=== PATIENT | male | born 1990 | race Two or more races ===

== ENCOUNTER 2023-12-09 12:48 | Outpatient (AMB) | payer OTHER, BC, SELFPAY ==
--- NOTE | 2023-12-09 13:17 | MHC.OFFWIV ---
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 He states he was reaching down lifting a crate of bread and had a sudden onset of acute back pain. He denies any lower extremity weakness or paresthesias denies incontinence but does have radiating pain down his posterior thigh through his sciatic notch. PFSH Social History Patient Tobacco Use Status: Never used Tobacco Review of Systems Const All systems reviewed & are unremarkable except as noted in HPI and below Physical Exam Vital Signs: Last Vital Signs Temp 98.7 F 12/09/23 13:18 Pulse 83 12/09/23 13:18 BP 110/88 12/09/23 13:18 Pulse Ox 97 12/09/23 13:18 Oxygen Delivery Method Room Air 12/09/23 13:18 BMI result Body Mass Index 43.4 Back/Spine/Pelvis Thoracic/Lumbar Spine: straight leg raise negative bilaterally and paraspinal muscle tenderness on the right in the lower lumbar Assessment & Plan Assessment & Plan (1) Low back pain potentially associated with radiculopathy: Code(s): M54.50 - Low back pain, unspecified Plan: The patient will take a Medrol Dosepak to see if we can decrease the symptoms on the radiculopathy. He was instructed to do some gentle and ambulation avoid prolonged sitting and no lifting. Follow up with his PCP the symptoms do not resolve. Medications: New prednisone prednisone 5 mg: take 8 tablets (40 mg) on Day 1; 7 tablets (35 mg) on Day 2; then decrease by 1 tablet every day until finished PO 21 ea 0RF Coding Level of Care Code Est Pt Level 3 (85121) Diagnoses Low back pain potentially associated with radiculopathy M54.50
[2023-12-09 13:18] VITALS: BP 110/88; PULSE 83; TEMP 37.1; O2SAT 97; BMI 43.4
== END 2023-12-09 14:03 | disposition home or self-care (01) ==
PROVIDERS: Visit Provider Physician Assistant Medical
DX: M54.50 Low back pain, unspecified (principal)
CPT/HCPCS: 99213

== ENCOUNTER 2023-12-14 11:53 | Outpatient (AMB) | payer OTHER, BC, SELFPAY ==
[2023-12-14 12:54] VITALS: BP 110/80; PULSE 106; TEMP 36.3; O2SAT 96; BMI 43.1
--- NOTE | 2023-12-14 12:54 | MHC.OFFWIV ---
Intake Vital Signs 12/14/23 12:54 Height 6 ft 1 in Weight 327 lb BMI 43.1 BP 110/80 Blood Pressure Location Lt brachial Position Sitting Pulse 106 H Pulse Source Pulse Oximeter Temp 97.4 F Temp Source Temporal Artery Scan Pulse Oximetry (%) 96 Oxygen Delivery Method Room Air Intake Visit Reasons: EP WC Back pain Intake Note: pt is here today for back pain started 1 week ago Patient Tobacco Use Status: Never used Tobacco Allergies No Known Allergies Allergy (Verified 12/14/23 12:55) Do you need a note to return to daycare/school/sports/work: Yes HPI HPI Comments History of Present Illness Details This is a 33-year-old male with no stated past medical history who presents for re-evaluation after experiencing a work-related injury on December 07, 2023. Patient works as a Traffic Or System Dispatcher for [employer] and on 12.07.2023 was picking up a tray of bread and placing it on a trailer when he suddenly felt a sharp 10/10 pain in his right low back when putting down the tray of bread. Patient was unable to work thereafter. Patient states the trays of bread weigh anywhere from 10-20 lb each. Patient is reporting an injury to his low back. Patient was seen in the walk-in on December 08 and prescribed a tapering dose of prednisone which he has not yet completed. Patient states at this time he feels that he is able to put more weight on his right leg however continues to have right low back pain that radiates down his lateral right leg to his foot. Patient denies any numbness or tingling in his right lower extremity and denies any new injuries since being seen on December 08. Patient returns for a re-evaluation as previously instructed. [facility] Social History Patient Tobacco Use Status: Never used Tobacco Review of Systems Const All systems reviewed & are unremarkable except as noted in HPI and below Reports no additional complaints Musc Reports abnormal gait, Reports back pain, Reports radiating pain into limb (RLE) and Denies tingling Skin/Breast Reports system reviewed and no additional complaints, except as documented Neuro Reports no additional complaints, Reports abnormal gait and Denies tingling Psych Reports no additional complaints Physical Exam Vital Signs: Last Vital Signs Temp 97.4 F 12/14/23 12:54 Pulse 106 H 12/14/23 12:54 BP 110/80 12/14/23 12:54 Pulse Ox 96 12/14/23 12:54 Oxygen Delivery Method Room Air 12/14/23 12:54 BMI result Body Mass Index 43.1 Pulse rechecked 72 on physical examination. Const General: cooperative, comfortable and other (seated on left buttock with right leg extended) Nutritional Appearance: obese Orientation/consciousness: patient oriented x3 Limitations: no limitations Cardio Rate: regular rate Rhythm: regular rhythm Back/Spine/Pelvis Thoracic/Lumbar Spine: thoracic and lumbar spine normal to inspection, pain with thoraco-lumbar ROM (right), paraspinal muscle tenderness (right lumbar paraspinous tenderness with ++right sciatic notch tenderness), No thoracic spinal tenderness and No lumbar spinal tenderness Pelvis: sciatic notch tenderness (right) Sacroiliac joints: on the right tender to palpation and on the left nontender Skin General skin exam: no rashes or lesions noted Neuro Other: sensation intact throughout RLE; passive ROM right knee, right hip intact General: patient oriented x3 Gait exam (Neuro): gait abnormal (favoring RLE; ambulating independently without assistance) Psych Appearance: grossly normal Mental Status: mental status grossly normal Insight: Good insight present (Psych) Judgement: Good judgement present (Psych) Assessment & Plan Assessment & Plan (1) Low back pain potentially associated with radiculopathy: Onset Date: 12/07/23 Comment: Patient reports clinical improvement, however will benefit from physical therapy intervention. Code(s): M54.50 - Low back pain, unspecified Plan: Patient will complete course of prednisone with the addition of Robaxin; patient is prescribed Naprosyn to take following the completion of his prednisone taper. Referral for physical therapy is placed. Patient will follow-up in the walk-in in 7-10 days. Orders: Orders PT Evaluation and Treatment Today M54.50 - Low back pain, unspecified Medications: New methocarbamol 750 mg PO Q8H 20 tabs 0RF naproxen (Naprosyn) 500 mg PO BID 20 tabs 0RF Coding Level of Care Code Est Pt Level 3 (55056) Diagnoses Low back pain potentially associated with radiculopathy M54.50 Time Spent (min) 25
== END 2023-12-14 13:36 | disposition home or self-care (01) ==
PROVIDERS: Visit Provider Physician Assistant
DX: M54.50 Low back pain, unspecified (principal)
CPT/HCPCS: 99213

== ENCOUNTER 2023-12-23 09:29 | Outpatient (AMB) | payer OTHER, BC, SELFPAY ==
[2023-12-23 10:11] VITALS: BP 130/92; PULSE 104; TEMP 36.8; O2SAT 96; BMI 43.3
--- NOTE | 2023-12-23 10:11 | MHC.OFFWIV ---
Intake Vital Signs 12/23/23 10:11 Height 6 ft 1 in Weight 328 lb 8 oz BMI 43.3 BP 130/92 H Blood Pressure Location Lt brachial Position Sitting Pulse 104 H Pulse Source Pulse Oximeter Temp 98.3 F Temp Source Oral Pulse Oximetry (%) 96 Oxygen Delivery Method Room Air Intake Visit Reasons: EP lower back pain Intake Note: pt is here today for lower back pain that started after he was picking up and putting something down at work on 12/07/23. Pt states he had a sharp pain go down his leg. Pt states he was seen here 12/09/23 and 12/14/23 and was told to come back here if it didn't get better. Patient Tobacco Use Status: Never used Tobacco Allergies No Known Allergies Allergy (Verified 12/23/23 10:21) HPI HPI Comments History of Present Illness Details Pt is a 33yo M who presents post work injury for check up Has been seen twice for lowwer back injury Was lifting and + pain in back at work R sided lower back with intermittent radiopathy + pain at baseline with intermittent radiation No tingling/weakness No abdominal pain, urine or bowel symptoms or incontinence Previously took prednisone and then muscle relaxants which helped States discomfort with ambulation is improving No other complaints PT appointment on Thursday [facility] Social History Patient Tobacco Use Status: Never used Tobacco Review of Systems Const Denies chills, Denies fatigue, Denies fever(s) and Denies weakness Card Denies chest pain Resp Denies cough GI Denies abdominal pain and Denies other (no bladder/bowel incontience) Musc Reports back pain Skin/Breast Denies rash Neuro Denies weakness Endo Denies fatigue Physical Exam Vital Signs: Last Vital Signs Temp 98.3 F 12/23/23 10:11 Pulse 104 H 12/23/23 10:11 BP 130/92 H 12/23/23 10:11 Pulse Ox 96 12/23/23 10:11 Oxygen Delivery Method Room Air 12/23/23 10:11 BMI result Body Mass Index 43.3 General: Non-toxic, NAD. Speaking full sentences. Skin: Warm dry throughout. No posterior back or flank ecchymosis or lesions Eye: EOMI Respiratory: Lungs CTA Cardiac: RRR. No calf tenderness or pedal edema MSK: Full ROM extremities. No midline spinal tenderness. + R paravertebral muscle tenderness to palpation. Negative SLR bilaterally. 5/5 flexion of great toe bilaterally Neurology: A/O. No aphasia or facial droop. Gait without abnormality Psych: Good mood and affect Assessment & Plan Assessment & Plan (1) Low back pain potentially associated with radiculopathy: Onset Date: 12/07/23 Comment: Patient reports clinical improvement, however will benefit from physical therapy intervention. Code(s): M54.50 - Low back pain, unspecified Plan: Patient seen and evaluated. No new symptoms but pain still present at baseline and worse with movement Discussed with pt that he has PT appointment on Thursday Switch to tylenol/motrin alternating during day and only Robaxin when needed such as before bed We reiterated no alcohol or driving under influence Work okay with follow up here for injury and he will return in one week to re-eval Discussed manual labor for work but boss has idea/plan for when he can return to work with restrictions. Patient gave verbal understanding and had no additional questions or concerns at time of discharge All questions answered Coding Level of Care Code Est Pt Level 3 (81732) Diagnoses Low back pain potentially associated with radiculopathy M54.50
== END 2023-12-23 11:07 | disposition home or self-care (01) ==
PROVIDERS: Visit Provider Physician Assistant
DX: M54.50 Low back pain, unspecified (principal)
CPT/HCPCS: 99213

== ENCOUNTER 2023-12-30 10:07 | Outpatient (AMB) | payer OTHER, BC, SELFPAY ==
[2023-12-30 10:18] VITALS: BP 112/90; PULSE 86; TEMP 36.7; O2SAT 97; BMI 43.0
--- NOTE | 2023-12-30 10:18 | AM.OFFWIN_ITS ---
Intake Vital Signs 3 12/30/23 10:18 Height 6 ft 1 in Weight 326 lb BMI 43.0 BP 112/90 H Blood Pressure Location Lt brachial Position Sitting Pulse 86 Pulse Source Pulse Oximeter Temp 98.0 F Temp Source Temporal Artery Scan Pulse Oximetry (%) 97 Oxygen Delivery Method Room Air Intake Visit Reasons: EP Back pain Intake Note: pt is here today for back pain started 12/06 Patient Tobacco Use Status: Never used Tobacco Allergies No Known Allergies Allergy (Verified 12/30/23 10:21) Medication List - Last Reconciled 12/30/23 by Carl Ballesteros MD methocarbamol 750 mg PO Q8H naproxen (Naprosyn) 500 mg PO BID Do you need a note to return to daycare/school/sports/work: Yes HPI EP Back pain 2 HPI0 Details Patient is a 33-year-old gentleman came in today to be re-evaluate for right-sided lumbar radiculitis Patient was evaluated a week ago in walk-in clinic was prescribed prednisone methocarbamol naproxen and physical therapy was ordered Patient is feeling little bit better, he still have 2 more sessions of physical therapy His pain started at work, 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 I have filled his methocarbamol and naproxen prescription He is to finish up his physical therapy Patient was given another 2 weeks off. He is still having pain radiating to right leg, there is no weakness in leg there is no paresthesia Pain is worse when he is sitting for prolonged periods of time and better when he stands up There is no bowel or bladder issue Patient should get re-evaluation by primary care after 2 weeks [facility] Social History Patient Tobacco Use Status: Never used Tobacco Review of Systems Const Denies chills and Denies fever(s) ENT Denies epistaxis and Denies nasal discharge Card Denies chest pain Resp Denies chest congestion, Denies cough and Denies hemoptysis GI Denies diarrhea and Denies nausea Skin/Breast Denies rash Neuro Reports no additional complaints Psych Reports no additional complaints Endo Reports no additional complaints Physical Exam Vital Signs: Last Vital Signs Temp 98.0 F 12/30/23 10:18 Pulse 86 12/30/23 10:18 BP 112/90 H 12/30/23 10:18 Pulse Ox 97 12/30/23 10:18 Oxygen Delivery Method Room Air 12/30/23 10:18 BMI result Body Mass Index 43.0 Const General: cooperative Orientation/consciousness: patient oriented x3 HEENT Head: Yes normocephalic Eyes General: appearance normal, both eyes and all related structures Neck Other: Supple Neck: Yes supple Resp Effort & Inspection: normal respiratory effort, no cough and no stridor Cardio Rhythm: regular rhythm Heart sounds: S1 normal heart sound present and S2 normal heart sound present Back/Spine/Pelvis Back/spine/pelvis image: 2 1. No pain with percussion, this is where the pain starts and radiate to right hip area, straight leg slightly positive right side Skin General skin exam: turgor normal Neuro Other: Motor sensory intact General: patient oriented x3, tone normal and moves all extremities Extrem Other: No lower extremity swelling. Right lower extremity: no edema Left lower extremity: no edema Psych Other: Normal effect, speech clear Assessment & Plan Assessment & Plan (1) Low back pain potentially associated with radiculopathy: Onset Date: 12/07/23 Code(s): M54.50 - Low back pain, unspecified Plan Patient is a 33-year-old gentleman came in today to be re-evaluate for right- sided lumbar radiculitis Patient was evaluated a week ago in walk-in clinic was prescribed prednisone methocarbamol naproxen and physical therapy was ordered Patient is feeling little bit better, he still have 2 more sessions of physical therapy His pain started at work, 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 I have filled his methocarbamol and naproxen prescription He is to finish up his physical therapy Patient was given another 2 weeks off. He is still having pain radiating to right leg, there is no weakness in leg there is no paresthesia Pain is worse when he is sitting for prolonged periods of time and better when he stands up There is no bowel or bladder issue Patient should get re-evaluation by primary care after 2 weeks Medications: Refilled 2 methocarbamol 750 mg PO Q8H 20 tabs 0RF naproxen (Naprosyn) 500 mg PO BID 20 tabs 0RF Coding Level of Care Code Est Pt Level 4 (01296) Diagnoses Low back pain potentially associated with radiculopathy M54.50
== END 2023-12-30 11:51 | disposition home or self-care (01) ==
PROVIDERS: Visit Provider Internal Medicine
DX: M54.50 Low back pain, unspecified (principal)
CPT/HCPCS: 99214

== ENCOUNTER 2024-01-13 08:11 | Outpatient (AMB) | payer OTHER, BC, SELFPAY ==
[2024-01-13 08:29] VITALS: BP 120/78; PULSE 92; TEMP 36.6; O2SAT 97; BMI 43.1
--- NOTE | 2024-01-13 08:29 | MHC.OFFWIV ---
Intake Vital Signs 01/13/24 08:29 Height 6 ft 1 in Weight 327 lb BMI 43.1 BP 120/78 Blood Pressure Location Lt brachial Position Sitting Pulse 92 Pulse Source Pulse Oximeter Temp 97.8 F Temp Source Temporal Artery Scan Pulse Oximetry (%) 97 Oxygen Delivery Method Room Air Intake Visit Reasons: EP lower back pain (lobby) Intake Note: pt is here today for lower back pain started 1 month Patient Tobacco Use Status: Never used Tobacco Allergies No Known Allergies Allergy (Verified 01/13/24 08:33) Medication List - Last Reconciled 01/13/24 by Carl Ballesteros MD methocarbamol 750 mg PO Q8H naproxen (Naprosyn) 500 mg PO BID Do you need a note to return to daycare/school/sports/work: Yes HPI EP lower back pain (lobby) HPI Details Patient is 33-year-old gentleman who is gradually recovering from lumbar radiculitis right side physical therapy Patient says that he is still have few sessions left and he would like to finish it before he go back to work He has talked to his boss and he they agree. He will be finishing up on February 01, he is taking muscle relaxer at night only On physical exam, he still have positive straight leg sign but it is improving Note provided to be off until February 01 PFSH Social History Patient Tobacco Use Status: Never used Tobacco Review of Systems Const All systems reviewed & are unremarkable except as noted in HPI and below Physical Exam Vital Signs: Last Vital Signs Temp 97.8 F 01/13/24 08:29 Pulse 92 01/13/24 08:29 BP 120/78 01/13/24 08:29 Pulse Ox 97 01/13/24 08:29 Oxygen Delivery Method Room Air 01/13/24 08:29 BMI result Body Mass Index 43.1 Const General: no acute distress Orientation/consciousness: patient oriented x3 Eyes General: appearance normal, both eyes and all related structures Resp Effort & Inspection: normal respiratory effort and able to speak in complete sentences Auscultation: clear to auscultation bilaterally Cardio Other: S1 S2 Back/Spine/Pelvis Other: Pain is located lumbar area more so on the right side no pain with lumbar spine percussion Neuro Other: Motor strength equal both legs, straight leg slightly positive right side General: patient oriented x3 Psych Mental Status: mental status grossly normal Assessment & Plan Assessment & Plan (1) Right lumbar radiculitis: Code(s): M54.16 - Radiculopathy, lumbar region Plan Patient is 33-year-old gentleman who is gradually recovering from lumbar radiculitis right side physical therapy Patient says that he is still have few sessions left and he would like to finish it before he go back to work He has talked to his boss and he they agree. He will be finishing up on February 01, he is taking muscle relaxer at night only On physical exam, he still have positive straight leg sign but it is improving Note provided to be off until February 01 Coding Level of Care Code Est Pt Level 3 (59028) Diagnoses Right lumbar radiculitis M54.16
== END 2024-01-13 09:42 | disposition home or self-care (01) ==
PROVIDERS: Visit Provider Internal Medicine
DX: M54.16 Radiculopathy, lumbar region (principal)
CPT/HCPCS: 99213

== ENCOUNTER 2024-02-02 10:00 | Outpatient (RCR) | payer OTHER, BC, SELFPAY ==
--- NOTE | 2023-12-28 16:47 | MHC.PT.EP ---
[facility] [place] Office [place] Office [place] Office [address] Carley Estevez [address] [phone] F: [phone] F: [phone] F: [phone] F: [phone] Physical Therapy Plan of Care Date of Evaluation: 12/28/23 Date of Surgery: Diagnosis: LBP, potentially associated with radiculopathy. 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 Pt is deemed an appropriate candidate to receive skilled PT services to address their physical impairments in order to improve their functional ability Frequency and Duration: The patient will be seen 2 x/ wk x 4 wks. Short Term Goals: Initiate home program. Improve baseline pain to < 4/10; initial: 7/10. Intermediate Goals: I with home program. Improve Doc by at least 9 points. Pt will be able to vicente sitting with managed Sx; initial: < 1 hour. Pt will report no longer disturbed of sleep d/t LBP; initial: 1/4 disturbed. Treatment Plan: Modalities to reduce pain, spasms and effusion. Manual therapy to restore motion and function. Therapeutic exercise to improve strength and flexibility. Neuromuscular re-education for posture and balance. Therapeutic activities to return to functional activities of daily living. Electronically signed by: Amol Monreal PT. Please sign and return to therapist. Thank you for your referral.
--- NOTE | 2024-02-02 11:03 | MHC.PT.DC ---
[facility] [place] Office [place] Office [place] Office [address] Carley Estevez [address] [phone] F: [phone] F: [phone] F: [phone] F: [phone] Physical Therapy Discharge Report Diagnosis: LBP, potentially associated with radiculopathy. Date of Surgery: Date of Evaluation: 12/28/23 Date of Discharge: 02/02/24 Treatments to Date: 8 Cancellations to Date: No Shows to Date: Discharge Status: Achieved Goals Improved Function Independent with HEP Discharge Summary: Christ has been an active and motivated participant in his therapy in and out of the clinic; though he persists with mild soreness at times he has met all of his therapeutic goals, his radicular symptoms have been resolved for weeks, he is I with his home program, and is in agreement with DC at this time. Electronically signed by: Amol Monreal PT. Please sign and return to therapist. Thank you for your referral.
== END 2024-02-02 11:02 | disposition home or self-care (01) ==
LOC: HO.PT 10:00
PROVIDERS: Visit Provider Physician Assistant
DX: M54.50 Low back pain, unspecified (principal)
CPT/HCPCS: 97110; 97161; 97530